=== PATIENT | female | born 1950 ===

== ENCOUNTER 2017-03-21 09:22 | Emergency (ER) | payer MEDICARE, MEDICAID ==
[2017-03-21 09:30] VITALS: BMI 29.0
[2017-03-21 09:32] VITALS: BP 130/56; PULSE 71; RESP 20; TEMP 98.6; O2SAT 99
--- NOTE | 2017-03-21 10:14 | ED PDOC ---
HPI: General Adult Time Seen by Provider: 03/21/17 09:30 Chief Complaint (Nursing): Lower Extremity Problem/Injury Chief Complaint (Provider): right leg pain History Per: Patient History/Exam Limitations: no limitations Additional Complaint(s): 67yo female, taking Pradaxa, w/ Hx right leg DVT, varicose veins, TIA, comes to the ED complaining of concern that DVT in right lower extremity is still there. No chest pain, shortness of breath. States she has some right lower extremity pain. No abdominal pain. Past Medical History Reviewed: Historical Data, Nursing Documentation, Vital Signs Vital Signs: Last Vital Signs Temp 98.6 F 03/21/17 09:30 Pulse 71 03/21/17 09:30 Resp 20 03/21/17 09:30 BP 130/56 L 03/21/17 09:30 Pulse Ox 99 03/21/17 12:56 - Medical History PMH: Deep Vein Thrombosis (on Pradaxa), Fractures (LUE), HTN, Hypercholesterolemia, TIA - Surgical History Surgical History: No Surg Hx - Family History Family History: States: Unknown Family Hx - Social History Current smoker - smoking cessation education provided: No Alcohol: None Drugs: Denies - Immunization History Hx Tetanus Toxoid Vaccination: No Hx Influenza Vaccination: No Hx Pneumococcal Vaccination: Yes - Home Medications Home Medications: Ambulatory Orders Medication Instructions Recorded Simvastatin 20 mg PO DAILY 09/06/15 Dabigatran [Pradaxa] 150 mg PO BID 04/04/16 Aspirin [Aspirin Chewable] 81 mg PO DAILY 08/08/16 Lisinopril [Zestril] 20 mg PO DAILY 09/07/16 Hydrochlorothiazide [Microzide] 12.5 mg PO DAILY 03/17/17 oxyCODONE/Acetaminophen [Percocet 1 tab PO QID PRN #10 tab 03/19/17 5/325 mg Tab] - Allergies Allergies/Adverse Reactions: Allergies Allergy/AdvReac Type Severity Reaction Status Date / Time bacitracin Allergy Severe RASH Verified 03/21/17 09:31 adhesive tape Allergy URTICARIA Verified 03/21/17 09:31 clopidogrel [From Plavix] Allergy RASH Verified 03/21/17 09:31 Review of Systems ROS Statement: Except As Marked, All Systems Reviewed And Found Negative Cardiovascular: Negative for: Chest Pain Respiratory: Negative for: Shortness of Breath Musculoskeletal: Positive for: Leg Pain Physical Exam - Reviewed Nursing Documentation Reviewed: Yes Vital Signs Reviewed: Yes - Physical Exam Appears: Positive for: Well, Non-toxic, No Acute Distress Head Exam: Positive for: ATRAUMATIC, NORMAL INSPECTION, NORMOCEPHALIC Skin: Positive for: Warm, Dry Eye Exam: Positive for: EOMI, PERRL Cardiovascular/Chest: Positive for: Regular Rate, Rhythm Respiratory: Positive for: Normal Breath Sounds. Negative for: Rales, Rhonchi, Wheezing Gastrointestinal/Abdominal: Positive for: Normal Exam, Soft. Negative for: Tenderness Extremity: Positive for: Normal ROM, Other (varicose veins, neurovascularly intact.). Negative for: Calf Tenderness - ECG O2 Sat by Pulse Oximetry: 99 (RA) Pulse Ox Interpretation: Normal Medical Decision Making Medical Decision Makin Will obtain US Right lower extremity. Will give tylenol in the ED. Old charts reviewed. Patient seen on 03/19/17 and diagnosed with knee pain. Patient seen on 03/17/17 and diagnosed with Dean's cyst of knee and made aware of those results at that time and told to tiara garcai with outpt orthopedics. US Right lower extremity Impression (from 03/17/17): 1. No evidence of deep or superficial vein thrombosis of the right lower extremity. Mild valvular incompetence noted of the right popliteal and great saphenous veins. 2. Fluid collection noted in the right posterior knee area, measuring 3.64 x 1.23cm. Normal venous flow noted in the left common femoral vein. 1200 US Right lower extremity Impression (obtained during this ED visit) No evidence of deep venous thrombosis in the right lower extremity. No evidence of significant soft tissue swelling -edema Large complex of popliteal/Dean's cyst as above. Discharge US results consistent with previous and very recent, US results. Patient referred to orthopedics again. Explained importance of outpatient follow up with orthopedics. pt agreeable to plan.. Disposition - Clinical Impression Clinical Impression: Bakers cyst - Patient ED Disposition Is Patient to be Admitted: No Counseled Patient/Family Regarding: Studies Performed, Diagnosis, Need For Followup - Disposition Referrals: Ananth Silvestre MD [Staff Provider] - Disposition: Routine/Home Disposition Time: 11:30 Condition: IMPROVED Additional Instructions: follow up with orthopedics as previously recommended return to the ED with any worsening or concerning symptoms. Instructions: Leg Pain (ED) Additional Comments - Additional Comments Additional Comments: Scribe Attestation: Documented by Mele Mchugh acting as a scribe for Jitendra Crockett MD. Provider Scribe Attestation: All medical record entries made by the Scribe were at my direction and personally dictated by me. I have reviewed the chart and agree that the record accurately reflects my personal performance of the history, physical exam, medical decision making, and the department course for this patient. I have also personally directed, reviewed, and agree with the discharge instructions and disposition.
--- NOTE | 2017-03-21 11:46 | US ---
PROCEDURE: Right lower extremity venous duplex Doppler. HISTORY: history of clot, increased pain COMPARISON: Comparison made with prior bilateral lower extremity venous Doppler exam 08/19/2016. TECHNIQUE: Common femoral, superficial femoral, popliteal and posterior tibial veins were evaluated. Flow was assessed with color Doppler, compressibility, assessment of phasic flow and augmentation response. FINDINGS: COMMON FEMORAL VEIN: Unremarkable. SUPERFICIAL FEMORAL VEIN: Unremarkable. POPLITEAL VEIN: Unremarkable. POSTERIOR TIBIAL VEIN: Unremarkable. OTHER FINDINGS: Note is made of a complex appearing fluid collection within the posterior fossa which measures approximately 5.95 x 2.3 cm. Findings most likely represent popliteal -Dean cyst. IMPRESSION: No evidence of deep venous thrombosis in the right lower extremity. No evidence of significant soft tissue swelling -edema Large complex of popliteal/Dean's cyst as above.
== END 2017-03-21 12:43 | disposition home or self-care (01) ==
LOC: H.ER 09:22
DX: M71.21 Synovial cyst of popliteal space [Baker], right knee (principal); E78.00 Pure hypercholesterolemia, unspecified; I10 Essential (primary) hypertension; Z79.01 Long term (current) use of anticoagulants; Z79.82 Long term (current) use of aspirin; Z86.718 Personal history of other venous thrombosis and embolism; Z86.73 Personal history of transient ischemic attack (TIA), and cerebral infarction without residual deficits

== ENCOUNTER 2017-09-13 00:20 | Emergency (ER) | payer OTHER, MEDICAID ==
[2017-09-13 00:52] VITALS: BMI 28.7
[2017-09-13 00:55] VITALS: RESP 16
--- NOTE | 2017-09-13 01:06 | ED PDOC ---
HPI: Psych/Substance Abuse Time Seen by Provider: 09/13/17 00:33 Chief Complaint (Nursing): Anxiety Chief Complaint (Provider): Anxiety History Per: Patient History/Exam Limitations: no limitations Current Symptoms Are (Timing): Still Present Additional Complaint(s): Charissa is a 67 y/o female who was recently diagnosed with Menieres disease who presents to the ED c/o anxiety about not being able to return to work. She states she has been having many thoughts about the disease which cause insomnia and anxiety. She denies homicidal ideation and suicidal ideation, and feels safe at home. Patient has a follow up on Sunday with her ENT. PMD: Margy Cook Past Medical History Reviewed: Historical Data, Nursing Documentation, Vital Signs Vital Signs: Last Vital Signs Temp 98.6 F 09/13/17 00:51 Pulse 74 09/13/17 00:51 Resp 16 09/13/17 00:51 BP 132/70 09/13/17 00:51 Pulse Ox 99 09/13/17 00:51 - Medical History PMH: Anxiety, Deep Vein Thrombosis (on Pradaxa), Fractures (LUE), HTN, Hypercholesterolemia, TIA Denies: Chronic Kidney Disease - Family History Family History: States: Unknown Family Hx - Immunization History Hx Tetanus Toxoid Vaccination: No Hx Influenza Vaccination: No Hx Pneumococcal Vaccination: No - Home Medications Home Medications: Ambulatory Orders Medication Instructions Recorded Simvastatin 20 mg PO DAILY 09/06/15 Dabigatran [Pradaxa] 150 mg PO BID 04/04/16 Aspirin [Aspirin Chewable] 81 mg PO DAILY 08/08/16 Lisinopril [Zestril] 20 mg PO DAILY 09/07/16 Hydrochlorothiazide [Microzide] 12.5 mg PO DAILY 03/17/17 Cyclobenzaprine [Cyclobenzaprine 10 mg PO Q8 PRN #20 tab 04/17/17 HCl] Fluticasone Propionate [Flonase] 2 spr SLAVA DAILY #1 bottle 08/27/17 Meclizine [Antivert] 50 mg PO TID PRN #21 tab 08/27/17 Meclizine [Meclizine*] 25 mg PO Q6 #30 tab 09/07/17 Amoxicillin/Clavulanate [Augmentin 1 tab PO BID #14 tab 09/10/17 875 MG-125 MG] Fluticasone Propionate [Flonase] 2 spr SLAVA DAILY #1 bottle 09/10/17 - Allergies Allergies/Adverse Reactions: Allergies Allergy/AdvReac Type Severity Reaction Status Date / Time bacitracin Allergy Severe RASH Verified 09/10/17 00:39 adhesive tape Allergy URTICARIA Verified 09/10/17 00:39 clopidogrel [From Plavix] Allergy RASH Verified 09/10/17 00:39 Review of Systems ROS Statement: Except As Marked, All Systems Reviewed And Found Negative Psych: Positive for: Anxiety, Other (insomnia). Negative for: Suicidal ideation Physical Exam - Reviewed Nursing Documentation Reviewed: Yes Vital Signs Reviewed: Yes - Physical Exam Appears: Positive for: Non-toxic, No Acute Distress Head Exam: Positive for: ATRAUMATIC, NORMAL INSPECTION, NORMOCEPHALIC Skin: Positive for: Normal Color, Warm, Dry Eye Exam: Positive for: Normal appearance, EOMI, PERRL. Negative for: Nystagmus ENT: Positive for: Normal ENT Inspection Neck: Positive for: Normal, Painless ROM, Supple Cardiovascular/Chest: Positive for: Regular Rate, Rhythm. Negative for: Murmur Respiratory: Positive for: Normal Breath Sounds. Negative for: Respiratory Distress Gastrointestinal/Abdominal: Positive for: Normal Exam, Bowel Sounds, Soft. Negative for: Tenderness Back: Positive for: Normal Inspection Extremity: Positive for: Normal ROM. Negative for: Pedal Edema, Deformity Neurologic/Psych: Positive for: Alert, Oriented, Mood/Affect (anxious). Negative for: Motor/Sensory Deficits - ECG O2 Sat by Pulse Oximetry: 99 (RA) Pulse Ox Interpretation: Normal Medical Decision Making Medical Decision Making: Time: 00:52 Initial Impression: Anxiety Initial Plan: --Ativan 3AM Pt. states she's feeling much better, asking to sleep longer since she is drowsy 6AM Pt. awake and alert, will d/c home. Scribe Attestation: Documented by Angel aEgle, acting as a scribe for Balaji Mathew MD Provider Scribe Attestation: All medical record entries made by the Scribe were at my direction and personally dictated by me. I have reviewed the chart and agree that the record accurately reflects my personal performance of the history, physical exam, medical decision making, and the department course for this patient. I have also personally directed, reviewed, and agree with the discharge instructions and disposition. Disposition - Clinical Impression Clinical Impression: Anxiety - Patient ED Disposition Is Patient to be Admitted: No - Disposition Disposition: Routine/Home Disposition Time: 05:50 Condition: STABLE Instructions: Anxiety (ED) Forms: [employer] (Croatian)
[2017-09-13 06:38] VITALS: BP 134/78; PULSE 75; TEMP 98; O2SAT 97
== END 2017-09-13 06:49 | disposition home or self-care (01) ==
LOC: H.ER 00:20
DX: F41.9 Anxiety disorder, unspecified (principal); E78.00 Pure hypercholesterolemia, unspecified; H81.09 Meniere's disease, unspecified ear; I10 Essential (primary) hypertension; Z79.01 Long term (current) use of anticoagulants; Z79.82 Long term (current) use of aspirin; Z86.718 Personal history of other venous thrombosis and embolism; Z86.73 Personal history of transient ischemic attack (TIA), and cerebral infarction without residual deficits